=== PATIENT | male | born 2000 | race Caucasian/White ===

== ENCOUNTER 2024-08-10 08:12 | Emergency (ER) | payer BC, SELFPAY ==
--- NOTE | 2024-08-10 08:13 | ED.URI ---
HPI - URI/Sore Throat General Chief Complaint: Upper Respiratory Infection Stated Complaint: FEVER/L EAR HEARING LOSS Time Seen by Provider: 08/10/24 08:29 Source: patient and RN notes reviewed Mode of arrival: ambulatory Limitations: no limitations History of Present Illness HPI Narrative: 23-year-old male presents to the [facility] with complaints fevers, Congestion, body aches since Friday, 2 days decreased hearing in his left ear for while. reports that he has taken Mucinex Treatments prior to arrival: cold medicine Related Data Home Medications ?Medication ?Instructions ?Recorded ?Confirmed ?Last Taken ?Type No Home Medications 08/10/24 08/10/24 Unknown History Allergies Allergy/AdvReac Type Severity Reaction Status Date / Time No Known Allergies Allergy Verified 08/10/24 08:31 Review of Systems Review of Systems: All systems reviewed & are unremarkable except as noted in HPI and below Constitutional: Constitutional: Reports as per HPI, Reports body ache(s), Reports fatigue and Reports fever(s) ENT: Reports as per HPI Cardiovascular: Cardiovascular: Reports no additional cardiovascular complaints, Denies chest pain and Denies dyspnea Respiratory: Respiratory: Reports no additional respiratory complaints, Denies chest congestion, Denies cough and Denies dyspnea Musculoskeletal: Musculoskeletal: Reports no additional musculoskeletal complaints Integumentary/Breasts: Skin/Breast: Reports system reviewed and no additional complaints, except as docu PMFSH Comments At the time of my signature, I reviewed and agree with the nursing past medical, surgical, social, and family history. There is no relevant family history pertinent to the patient complaint. Exam Const: General: cooperative, healthy appearing, no acute distress, well developed, alert, uncomfortable and well nourished Nutritional Appearance: well nourished Orientation/consciousness: patient oriented x3 Limitations: no limitations HENMT: Head: normal to inspection Ears: TM abnormal bulging on the left and with fluid behind the TM bilateral; not erythematous and with no loss of landmarks Eyes: General: appearance normal, both eyes and all related structures Alignment and Position: alignment normal Neck: Neck: normal visual inspection, full ROM, no lymphadenopathy and no meningeal signs Chest: Chest palpation & inspection: normal inspection of the chest Resp: Effort & Inspection: normal respiratory effort and able to speak in complete sentences Auscultation: clear to auscultation bilaterally, no crackles, no rales, no rhonchi and no wheezes Cardio: Rate: regular rate Skin: General skin exam: normal color and no rashes or lesions noted Neuro: General: patient oriented x3, gait normal, moves all extremities and no meningeal signs Cognition (Neuro): normal cognition Speech: normal speech Gait exam (Neuro): Normal gait present Extrem: General: normal to inspection, full ROM, capillary refill normal and normal gait Psych: Appearance: grossly normal and well kempt Mental Status: mental status grossly normal Speech and movement: Normal speech and movement present and Clear speech present Affect: normal affect Attitude: cooperative Course Course Level of Care: Express Care Visit Vital Signs Vital signs: Vital Signs Temperature 100.9 F H 08/10/24 08:24 Pulse Rate 107 H 08/10/24 08:24 Respiratory Rate 16 08/10/24 08:24 Blood Pressure 119/80 08/10/24 08:24 Pulse Oximetry 97 08/10/24 08:24 Temperature 100.9 F H 08/10/24 08:24 Pulse Rate 107 H 08/10/24 08:24 Respiratory Rate 16 08/10/24 08:24 Blood Pressure 119/80 08/10/24 08:24 Pulse Oximetry 97 08/10/24 08:24 Reviewed MDM - URI/Sore Throat MDM Narrative Medical decision making narrative: patient sitting comfortably in exam room. Nontoxic, vitals stable patient presents with 2 day history of fevers, decreased hearing in the left ear, body aches. Patient is flu A positive patient flu B and COVID negative patient appropriate for outpatient treatment and follow-up Discharge instructions reviewed with patient, as well as provided in writing per nursing staff. The instructions also include specific and strict return/GO TO THE ER as well as f/u information. All questions have been answered, and the patient deny any further questions with discharge and discharge plan. Some parts of this dictation were generated by voice recognition software and may contain typographical and/or grammatical inaccuracies. Differential Diagnosis Differential diagnosis: Likely upper respiratory infection, otitis media, sinusitis, viral infection, bronchitis, influenza and pharyngitis Lab Data Labs: Lab Results 08/10/24 Range/Units 08:34 POC Influenza A Ag Positive (Negative) POC Influenza B Ag Negative (Negative) POC SARS CoV-2 Ag Negative (Negative) Reviewed Critical Care Time Critical Care Time Critical Care Time: No Discharge Plan Discharge Clinical Impression: Influenza A Acute serous otitis media, bilateral Qualifiers: Recurrence: not specified as recurrent Qualified Code(s): H65.03 - Acute serous otitis media, bilateral Patient Disposition: Home, Self-Care Condition: Stable Instructions: Antibiotic Form, Influenza (ED), Fluid In The Ear (Serous Otitis Media) (ED) Additional Instructions: Your rapid COVID test were negative Your rapid flu test was positive for influenza A Your symptoms are due to a viral illness, which is not treated with antibiotics. Typically viral infections last 7-10 days, can linger for couple of weeks. It is very important to treat your symptoms. Drink plenty of water, Gatorade, Pedialyte, ice pops or Jell-O. -Alternate Tylenol and Motrin per package directions for fever or pain. You can alternate every 4 hours -Antihistamine medication such as Zyrtec/Claritin/Kenna during the day can help improve symptoms. -doing daily nasal irrigations can help relieve pressure your sinuses. Things like a Neti pot -Use Flonase twice a day for 5 days then daily to help reduce the inflammation and dry up your sinuses. -You can also use Mucinex. Be sure to drink plenty of water with this medication at least 8 ounces with every dose and it is important to drink 8 to 10 glasses of water per day. Water is a natural decongestant -Eat and drink things that are easy to swallow, like tea or soup, or popsicles. -Oral rinses such as: Salt water gargles and/or may use topical anesthetic (eg. Chloraseptic spray) or lozenges to relieve dryness or throat pain). -Frequent hand washing or hand metal pourer is one of the best ways to prevent spread of infection. -Using a vaporizer or humidifier at night will also help thin secretions and help with coughing up phlegm. -Follow up with primary care provider in 7-10 days if condition is not improving - For new or worsening symptoms go directly to the nearest ER Patient Language: Namibian Prescriptions: No Action No Home Medications Follow-up/Referrals: UNKNOWN,DOCTOR [Non-Staff] - Stand Alone Forms: Work/School Release IP Time of Disposition: 08:40
[2024-08-10 08:24] VITALS: BP 119/80; PULSE 107; RESP 16; TEMP 38.3; O2SAT 97
[2024-08-10 08:37] LABS: EDCOVIDSCREEN Negative (Negative); EDINFLUASCREEN Positive (Negative); EDINFLUBSCREEN Negative (Negative)
== END 2024-08-10 08:42 | disposition home or self-care (01) ==
PROVIDERS: Emergency Provider Nurse Practitioner
DX: J10.1 Influenza due to other identified influenza virus with other respiratory manifestations (principal); H65.03 Acute serous otitis media, bilateral; Z20.822 Contact with and (suspected) exposure to COVID-19
CPT/HCPCS: 87426; 87804; 99202; G0463

== ENCOUNTER 2025-07-18 15:01 | Emergency (ER) | payer BC, SELFPAY ==
[2025-07-18 15:11] VITALS: BP 135/81; PULSE 85; RESP 16; TEMP 36.5; O2SAT 100
--- NOTE | 2025-07-18 15:52 | ED.HEATRA ---
HPI - Head Injury General Chief complaint: Head Injury Stated complaint: Head Pain Time Seen by Provider: 07/18/25 15:43 Source: patient and RN notes reviewed Mode of arrival: ambulatory Limitations: no limitations History of Present Illness HPI Narrative: 24-year-old male patient presents today after falling from a standing height out of a car last night. Patient states he may have struck his left forehead area on the car door and then struck his head on the ground. Loss of consciousness for approximately 1 minute. He reports left posterior scalp pain today that he rates 2/10 and describes it as dull. He is also complaining of lightheadedness, intermittent double vision in both eyes, difficulty concentrating. Denies dizziness, neck pain, nausea or vomiting. He has tried no OTC treatment prior to arrival. Related Data Home Medications ?Medication ?Instructions ?Recorded ?Confirmed ?Last Taken ?Type No Home Medications 08/10/24 07/18/25 Unknown History Allergies Allergy/AdvReac Type Severity Reaction Status Date / Time No Known Allergies Allergy Verified 07/18/25 15:11 PMFSH Comments At time of signature, I have reviewed and agree with nursing past medical, surgical, social and family history unless otherwise noted. Please see nursing chart for further information. There is no relevant family history pertinent to the presenting complaint Exam Narrative: GENERAL: Well-appearing, well-nourished, and in no acute distress. HEAD: Normocephalic. Minor abrasions above the left eyebrow EYES: EOMI. PERRL. No redness or drainage. Conjunctivae normal. ENT: Mucous membranes pink and moist. Nares clear. No rhinorrhea. TMs normal bilaterally. Throat normal. Uvula midline. NECK: Normal AROM. Supple. No lymphadenopathy. Neck is nontender. CHEST: No respiratory distress. Clear to auscultation. HEART: Regular rate and rhythm. No murmur appreciated. Normal peripheral pulses. MUSCULOSKELETAL: No bony tenderness. EXTREMITIES: Normal range of motion. No edema. 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 5/5 strength in bilateral lower extremities. SKIN: Warm, dry, no rash. Capillary refill normal. Normal skin turgor. NEURO: No focal deficits. Alert and oriented x3. Gait steady. PSYCH: Normal affect. No signs of depression or anxiety. Course Course Level of Care: Express Care Visit Vital Signs Vital signs: Vital Signs Temperature 97.7 F 07/18/25 15:11 Pulse Rate 85 07/18/25 15:11 Respiratory Rate 16 07/18/25 15:11 Blood Pressure 135/81 07/18/25 15:11 Pulse Oximetry 100 07/18/25 15:11 Temperature 97.7 F 07/18/25 15:11 Pulse Rate 85 07/18/25 15:11 Respiratory Rate 16 07/18/25 15:11 Blood Pressure 135/81 07/18/25 15:11 Pulse Oximetry 100 07/18/25 15:11 Reviewed Transfer Transfered to: Gerald Transportation: Other (Private vehicle) Transfer rationale: Head injury with loss of consciousness, double vision Accepting physician: Marichuy, report given to Emelia Holly [facility] MDM Narrative Medical decision making narrative: 24-year-old male patient presents today after falling from a standing height out of a car last night. Patient states he may have struck his left forehead area on the car door and then struck his head on the ground. Loss of consciousness for approximately 1 minute. He reports left posterior scalp pain today that he rates 2/10 and describes it as dull. He is also complaining of lightheadedness, intermittent double vision in both eyes, difficulty concentrating. Denies dizziness, neck pain, nausea or vomiting. He has tried no OTC treatment prior to arrival. Upon exam, mild abrasions above the left eyebrow. Neuro exam normal. Visual acuity 20/25 bilaterally. Due to patient's symptoms and history of loss of consciousness, recommend he proceed to the ER for further evaluation. Patient agrees with plan. Vital signs stable. Differential Diagnosis Differential Diagnosis: Concussion, ICH, contusion, abrasion Critical Care Time Critical Care Time Critical Care Time: No Discharge Plan Discharge Clinical Impression: Acute head injury with loss of consciousness Patient Disposition: Acute Care Hospital Condition: Stable Patient Language: Mozambican Prescriptions: No Action No Home Medications Follow-up/Referrals: PHYSICIAN,LEAN MANUFACTURING ENGINEER [Primary Care Provider, Internal Medicine] Time of Disposition: 16:00
== END 2025-07-18 16:10 | disposition short-term general hospital (02) ==
PROVIDERS: Emergency Provider Nurse Practitioner
DX: S06.9X1A Unspecified intracranial injury with loss of consciousness of 30 minutes or less, initial encounter (principal); W18.30XA Fall on same level, unspecified, initial encounter
CPT/HCPCS: 99212; G0463

== ENCOUNTER 2025-07-18 16:28 | Emergency (ER) | payer BC, SELFPAY ==
--- NOTE | ~2025-07-18 | CT_ITS ---
EXAMINATION: CT brain wo con COMPARISON: None HISTORY: head injury TECHNIQUE: Axial images were obtained through the brain without IV contrast. CT scan performed using dose optimization techniques including the following automated exposure control; adjustment of mA and/or kV; use of iterative reconstruction technique. Automatic exposure control was used to reduce radiation dose. Permanent radiation dose record is archived to PACS. FINDINGS: No acute infarct or parenchymal hemorrhage. No abnormal mass or mass effect. No midline shift. No extra-axial fluid collections. No hydrocephalus. . Mastoid air cells unremarkable. Sinuses and orbits unremarkable. No acute fracture. No significant facial or scalp soft tissue swelling evident. No radiopaque foreign body is seen. Impression: 1.No acute intracranial abnormality. Reviewed, dictated and finalized at location P. 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
[2025-07-18 16:32] VITALS: BP 127/72; PULSE 83; RESP 15; TEMP 36.8; O2SAT 100
--- NOTE | 2025-07-18 16:57 | ED.FALL ---
HPI - Fall General Chief Complaint: Fall Stated Complaint: fall Time Seen by Provider: 07/18/25 16:37 History of Present Illness HPI Narrative: 24-year-old male presents to the ER complaining of a head injury. Patient states yesterday he fell while exiting his vehicle, striking the back of his head and then heading from his head. Reports positive LOC for 15-30 seconds. Denies nausea, vomiting, vision or hearing changes. No anticoagulation. Denies neck pain. Denies memory loss, problems concentrating. His photophobia. Related Data Home Medications ?Medication ?Instructions ?Recorded ?Confirmed ?Last Taken ?Type No Home Medications 08/10/24 07/18/25 Unknown History Allergies Allergy/AdvReac Type Severity Reaction Status Date / Time No Known Allergies Allergy Verified 07/18/25 15:11 Review of Systems Review of Systems: All systems reviewed & are unremarkable except as noted in HPI and below Exam Const: General: healthy appearing, no acute distress and alert Nutritional Appearance: well nourished Orientation/consciousness: patient oriented x3 HENMT: Head: normal to inspection Ears: external ears normal and TM's normal bilaterally Face/Nose/Sinus: Normal external nose present Eyes: Conjunctivae: conjunctivae normal Pupils: Equal, round and reactive pupils present EOM: EOMs intact bilaterally Chest: Chest palpation & inspection: normal inspection of the chest Resp: Effort & Inspection: normal respiratory effort Cardio: Rate: regular rate Rhythm: regular rhythm Back/Spine/Pelvis: Other: No cervical spinal tenderness. No step-offs. FROM Skin: General skin exam: normal color Neuro: General: patient oriented x3, moves all extremities and CN's II-XI intact bilaterally Speech: normal speech Gait exam (Neuro): Normal gait present Psych: Mental Status: mental status grossly normal Affect: normal affect Attitude: cooperative Course Vital Signs Vital signs: Vital Signs Temperature 36.8 C 07/18/25 16:32 Pulse Rate 83 07/18/25 16:32 Respiratory Rate 07/18/25 16:32 Blood Pressure 127/72 07/18/25 16:32 Pulse Oximetry 100 07/18/25 16:32 Temperature 36.8 C 07/18/25 16:32 Pulse Rate 83 07/18/25 16:32 Respiratory Rate 15 07/18/25 16:32 Blood Pressure 127/72 07/18/25 16:32 Pulse Oximetry 100 07/18/25 16:32 MDM MDM Narrative Medical decision making narrative: 24-year-old male presents the complaining of a head injury after stepping on a car. Patient admitted to brief loss of consciousness. Head CT showed no acute abnormalities. Patient did not exhibit any cognitive impairments on exam. Differential Diagnosis Differential Diagnosis: Skull fracture, subdural hematoma, minor head injury, skull fracture, concussion Imaging Data Radiologist's impression: ITS Impressions Head CT 07/18/25 17:16 Impression: 1.No acute intracranial abnormality. Discharge Plan Discharge Clinical Impression: Concussion with loss of consciousness Acute head injury with loss of consciousness Qualifiers: Encounter type: initial encounter Qualified Code(s): S06.9X9A - Unspecified intracranial injury with loss of consciousness of unspecified duration, initial encounter Patient Disposition: Home Condition: Stable Instructions: Antibiotic Form, Concussion (ED) Patient Language: Kyrgyz Prescriptions: No Action No Home Medications Follow-up/Referrals: Babak Mcdonnell MD [Physician, Neurology] PHYSICIAN,TRAFFIC CONTROLLER CABLE [Primary Care Provider, Internal Medicine] Stand Alone Forms: Work/School Release IP Time of Disposition: 17:23
--- OUTSIDE RECORDS SUMMARY | 2025-07-18 18:15 | XMS_ITS | Clinical Summary ---
Author Organization [facility] [employer] [facility] lin Address [address] [place] [address] Care Team Providers Care Manager Of Transportation Name Role Phone Unavailable Primary Care Provider Unavailabl e Social History Tobacco Use Types Packs/Day Years Used Date Smoking Tobacco: Never Assessed Sex and Gender Information Value Date Recorded Sex Assigned at Not on file Legal Sex Male 2:14 PM EDT Gender Identity Not on file Sexual Orientation Not on file Plan of Treatment Not on file Medical Devices Not on file
== END 2025-07-18 17:54 | disposition home or self-care (01) ==
LOC: ANHED 17:46
PROVIDERS: Emergency Provider Nurse Practitioner Family
DX: S06.0X1A Concussion with loss of consciousness of 30 minutes or less, initial encounter (principal); V48.4XXA Person boarding or alighting a car injured in noncollision transport accident, initial encounter
CPT/HCPCS: 70450; 99282